=== PATIENT | male | born 1970 | race Caucasian/White ===

== ENCOUNTER 2023-05-03 12:43 | Emergency (ER) | payer BC, SELFPAY ==
[2023-05-03 12:48] VITALS: BP 119/96; PULSE 100; RESP 20; TEMP 36.7; O2SAT 96; BMI 32.8
--- NOTE | 2023-05-03 13:53 | ED.URI1 ---
HPI - URI/Sore Throat General Chief Complaint: Upper Respiratory Infection Stated Complaint: URTI Time Seen by Provider: 05/03/23 13:08 Source: patient Limitations: no limitations History of Present Illness HPI Narrative: Patient is a 52-year-old male who presents to the emergency department for 5-day history of upper respiratory symptoms. He states he is concerned he has bronchitis and has not been able to see his doctor. He has had no objective fevers although he states at the beginning of his illness he had hot and cold chills. He denies any vomiting or diarrhea. He has had occasional sputum production with coughing. He does not complain of chest pain or shortness of breath. He reports nasal congestion. No medications taken prior to arrival. He denies tobacco abuse. No sick contacts in the home. Related Data Previous Rx's Medication Instructions Recorded azithromycin 250 mg tablet See Rx Instructions PO .COMPLEX #6 05/03/23 (Zithromax Z-Ramo) tabs nfivrfqxeqbzxsy-bntafixjjtseycm-LS 10 ml PO Q6H PRN cold symptoms 05/03/23 2 mg-30 mg-10 mg/5 mL oral syrup #200 mL (Bromfed DM) prednisone 20 mg tablet 60 mg (3 x 20 mg) PO DAILY 3 days 05/03/23 #9 tabs Allergies Allergy/AdvReac Type Severity Reaction Status Date / Time Penicillins Allergy Severe Verified 05/03/23 12:53 Review of Systems ROS Constitutional Reports: chills; Denies: fever Ears, nose, mouth, and throat Reports: nasal congestion Cardiovascular Denies: chest pain Respiratory Reports: cough; Denies: shortness of breath Gastrointestinal Denies: nausea, vomiting or diarrhea Musculoskeletal Denies: back pain Integumentary/Breast Denies: rash Neurological Denies: headache Hematologic/Lymphatic Denies: easy bruising PFSH PFSH Social History Smoking status: Former smoker Exam Narrative Exam Narrative: Gen.: Awake, alert, in no distress Head: Normocephalic, atraumatic ENT: Moist mucous membranes, bilateral TMs clear, no pharyngeal erythema Respiratory: No respiratory distress, lungs clear bilaterally; no wheezing or rhonchi Cardio: Regular rate and rhythm Extremities: Moves extremities equally Psych: Normal mood and affect Neuro: No focal neuro deficit Skin: Warm, dry, intact Constitutional Vital Signs, click to edit/add: Last Vital Signs Temp 98.1 F 05/03/23 12:48 Pulse 100 H 05/03/23 12:48 Resp 20 05/03/23 12:48 BP 119/96 H 05/03/23 12:48 Pulse Ox 96 05/03/23 12:48 O2 Del Method Room Air 05/03/23 12:48 Course Vital Signs Vital signs: Vital Signs Temperature 98.1 F 05/03/23 12:48 Pulse Rate 100 H 05/03/23 12:48 Respiratory Rate 20 05/03/23 12:48 Blood Pressure 119/96 H 05/03/23 12:48 Pulse Oximetry 96 05/03/23 12:48 Oxygen Delivery Method Room Air 05/03/23 12:48 Temperature 98.1 F 05/03/23 12:48 Pulse Rate 100 H 05/03/23 12:48 Respiratory Rate 20 05/03/23 12:48 Blood Pressure 119/96 H 05/03/23 12:48 Pulse Oximetry 96 05/03/23 12:48 Oxygen Delivery Method Room Air 05/03/23 12:48 MDM - URI/Sore Throat MDM Narrative Medical decision making narrative: Patient treated for upper respiratory infection with Z-Ramo, Bromfed-DM and prednisone. Patient would like to defer chest x-ray and COVID test, his vital signs are within normal limits and he is in no respiratory distress. Follow-up with PCP and return to the ER if symptoms change or worsen Medical Records Attestation: I reviewed the patient's medical records. Discharge Plan Discharge Chief Complaint: Upper Respiratory Infection Clinical Impression: Upper respiratory infection Patient Disposition: Home, Self-Care Time of Disposition Decision: 13:13 Condition: Good Prescriptions / Home Meds: New azithromycin [Zithromax Z-Ramo] 250 mg tablet See Rx Instructions .ROUTE .COMPLEX Qty: 6 0RF Rx Instructions: For 250 mg dose pack: take 500 mg today (day 1), then 250 mg for 4 days (days 2-5) prednisone 20 mg tablet 60 mg PO DAILY 3 Days Qty: 9 0RF [id number]-kctvqabal-NV [Bromfed DM] 2-30-10 mg/5 mL syrup 10 ml PO Q6H PRN (Reason: cold symptoms) Qty: 200 0RF Instructions: Upper Respiratory Infection (ED) Stand Alone Forms: Portal Instructions Referrals: Physician,Non-Staff, MD [Primary Care Provider] - 1 week Discharge Date/Time: 05/03/23 13:22
== END 2023-05-03 13:22 | disposition home or self-care (01) ==
PROVIDERS: Emergency Provider Emergency Medicine
DX: J06.9 Acute upper respiratory infection, unspecified (principal); Z87.891 Personal history of nicotine dependence
CPT/HCPCS: 99283